=== PATIENT | female | born 1970 | race Caucasian/White ===

== ENCOUNTER 2017-09-29 05:13 | Day surgery (SDC) | payer BC ==
[~2017-09-29] VITALS: Ht 162.6 cm; Wt 72.6 kg
[~2017-09-29 05:13] MED LIST: DAILY AMINO1 EACH PO; JOINT SUPPORT1 EACH PO; MACA500 MG PO; PROBIOTIC1 EAC1 PO; TYLENOL REGULA325 MG PO; ZANTAC75 M1 PO; [UNRECOGNIZED DRUG - OTHER] PO
[2017-09-29 06:13] VITALS: BP 115/63
[2017-09-29 10:43] VITALS: BP 105/70
[2017-09-29 11:42] VITALS: BP 106/64
== END 2017-09-29 11:45 | disposition home or self-care (01) ==
LOC: SDC 05:13
PROC: 0UDB8ZX Extraction of Endometrium, Via Natural or Artificial Opening Endoscopic, Diagnostic (ICD-10-PCS; principal; 2017-09-29)
DX: N93.8 Other specified abnormal uterine and vaginal bleeding (principal); D25.9 Leiomyoma of uterus, unspecified; N94.10 Unspecified dyspareunia; K21.9 Gastro-esophageal reflux disease without esophagitis
CPT/HCPCS: 88305; J0690; J1100; J1170; J1885; J2250; J2405; J2765; J3010; Q0175

== ENCOUNTER 2017-12-15 08:33 | Day surgery (SDC) | payer BC ==
[~2017-12-15] VITALS: Ht 162.6 cm; Wt 72.6 kg
[~2017-12-15 08:33] MED LIST changes: +CENTRUM WOMEN1 EACH PO; +ESTRACE1 MG PO; +PRIMROSE OIL PO
[2017-12-15 09:02] VITALS: BP 112/68
[2017-12-15 16:08] LABS: HEMATOCRIT 38.6 % (36.0-46.0); HEMOGLOBIN 12.7 G/DL (11.9-15.5); MCH 29.1 PG (29.0-34.0); MCHC 32.9 G/DL (30.0-36.0); MCV 88.5 FL (83-99); PLATELET COUNT 185 K/uL (156-360); RBC DIS.WIDTH-CV 13.3 % (11.8-14.6); RBC DIS.WIDTH-SD 43.2 % (39-53); RED BLOOD COUNT 4.36 M/uL (3.80-5.20); WHITE BLOOD COUNT 12.5 K/uL (4.1-10.2)
[2017-12-15 16:31] LABS: CHLORIDE 105 MEQ/L (99-109); CREATININE 0.8 MG/DL (0.6-1.3); GFR ESTIMATE (CALCULATED) > 59 mL/min/; GLUCOSE 179 mg/dL (70-99); POTASSIUM 4.1 MEQ/L (3.7-5.4); SODIUM 138 MEQ/L (136-147); UREA NITROGEN (BUN) 17 mg/dL (9-23)
[2017-12-15 20:01] VITALS: BP 137/67
[2017-12-15 23:35] VITALS: BP 113/59
[2017-12-16 03:39] VITALS: BP 106/59
[2017-12-16 06:54] LABS: HEMATOCRIT 36.2 % (36.0-46.0); HEMOGLOBIN 11.6 G/DL (11.9-15.5); MCH 28.4 PG (29.0-34.0); MCV 88.5 FL (83-99); PLATELET COUNT 193 K/uL (156-360); RBC DIS.WIDTH-CV 13.2 % (11.8-14.6); RBC DIS.WIDTH-SD 42.6 % (39-53); RED BLOOD COUNT 4.09 M/uL (3.80-5.20); WHITE BLOOD COUNT 11.1 K/uL (4.1-10.2)
[2017-12-16 07:04] LABS: CHLORIDE 107 MEQ/L (99-109); CREATININE 0.9 MG/DL (0.6-1.3); GFR ESTIMATE (CALCULATED) > 59 mL/min/; GLUCOSE 121 mg/dL (70-99); SODIUM 142 MEQ/L (136-147); UREA NITROGEN (BUN) 10 mg/dL (9-23)
[2017-12-16 07:57] VITALS: BP 115/62
[2017-12-16] MEDS ORDERED: TRAMADOL HCL50 MG PO (09:26)
[2017-12-16 11:16] VITALS: BP 111/60
== END 2017-12-16 11:35 | disposition home or self-care (01) ==
LOC: SDC 08:33 → 2SOUTH 13:10 → ENRESERV 13:11 → SDC 13:37 → ENRESERV 14:14 → 2EAST 14:15 → SDC 12-22 10:50
PROVIDERS: Obstetrics & Gynecology Gynecologic Oncology
PROC: 0UT97ZZ Resection of Uterus, Via Natural or Artificial Opening (ICD-10-PCS; principal; 2017-12-15)
DX: N80.0 Endometriosis of uterus (principal); N73.6 Female pelvic peritoneal adhesions (postinfective); N93.8 Other specified abnormal uterine and vaginal bleeding; D25.9 Leiomyoma of uterus, unspecified; K21.9 Gastro-esophageal reflux disease without esophagitis; Z80.41 Family history of malignant neoplasm of ovary
CPT/HCPCS: 80048; 85027; 88307; G0378; J0171; J0690; J1100; J1170; J1650; J1885; J2250; J2405; J2710; J3010; J7643; Q0175